=== PATIENT | female | born 1975 | race Hispanic/Latino ===

== ENCOUNTER 2017-03-08 12:22 | Emergency (ER) | payer MEDICAID, OTHER ==
[2017-03-08 12:22] VITALS: BMI 23.3
[2017-03-08 12:39] VITALS: BP 126/82; PULSE 73; RESP 16; TEMP 98.1; O2SAT 97
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
== END 2017-03-08 13:03 | disposition home or self-care (01) ==
LOC: C.ER 12:22
DX: Z00.8 Encounter for other general examination (principal)